=== PATIENT | male | born 1990 | race Caucasian/White ===

== ENCOUNTER 2021-07-15 20:37 | Emergency (ER) | payer MEDICAID ==
[~2021-07-15] VITALS: Ht 182.9 cm; Wt 59.0 kg
== END 2021-07-16 15:27 | disposition home or self-care (01) ==
LOC: ED 20:37
DX: R45.851 Suicidal ideations (principal); F15.10 Other stimulant abuse, uncomplicated; F20.9 Schizophrenia, unspecified; Z20.822 Contact with and (suspected) exposure to COVID-19
CPT/HCPCS: 36415; 80053; 81001; 84443; 85025; 99285; C9803; G0480; U0003